=== PATIENT | female | born 1970 | race Caucasian/White ===

== ENCOUNTER → 2023-01-27 15:48 | Outpatient (CLI) | payer OTHER, SELFPAY ==
[2023-01-27 16:12] LABS: Basophils # 0.1 K/mm3 (0-0.2); Basophils % 0.9 % (0.1-2.0); Eosinophils # 0.1 K/mm3 (0.0-0.4); Eosinophils % 2.3 % (0.1-12.0); Hematocrit 42.6 % (37.0-47.0); Lymphocytes # 1.9 K/mm3 (0.7-4.5); Lymphocytes % 29.9 % (10-50); Mean Corpuscular HGB Conc 32.9 g/dL (31.8-35.4); Mean Corpuscular Hemoglobin 31.7 pg (27.0-31.2); Mean Corpuscular Volume 96.6 fl (81-99); Mean Platelet Volume 9.4 fl (7.4-10.4); Monocytes # 0.4 K/mm3 (0.1-1.0); Neutrophils # 3.7 K/mm3 (1.8-7.8); Neutrophils % 59.9 % (37.0-80.0); Platelet Count 351 K/mm3 (142-424); Red Blood Count 4.41 M/mm3 (4.20-5.40); Red Cell Distribution Width 12.4 % (11.5-17.5); White Blood Count 6.2 K/mm3 (4.8-10.8)
[2023-01-27 16:30] LABS: Alanine Aminotransferase 28 U/L (12-78); Albumin Level 4.4 g/dl (3.5-5.0); Albumin/Globulin Ratio 1.9 (1.1-1.8); Alkaline Phosphatase 70 U/L (38-126); Anion Gap 9.4 mEq/L (5-15); Aspartate Amino Transferase 33 U/L (14-36); Bilirubin,Total 0.4 mg/dl (0.2-1.3); Blood Urea Nitrogen 18 mg/dl (7-17); Calcium 8.8 mg/dl (8.4-10.2); Carbon Dioxide 26 mmol/L (22.0-30.0); Chloride 106 mmol/L (98-107); Chol/HDL Ratio 3.6 (1-3.5); Cholesterol 257 mg/dl (140-200); Estimated Glomerular Filt Rate 87 ml/min (>60); GFR (African American) 106 ML/MIN (>60); Globulin 2.3 g/dL (1.3-3.2); Glucose 98 mg/dl (74-100); HDL Cholesterol 72 mg/dl (40-60); Potassium 4.4 mmoL/L (3.5-5.1); Sodium 137 mmol/L (136-145); Total Protein,Serum 6.7 g/dl (6.3-8.2); Triglycerides 46 mg/dl (30-150); VLDL Cholesterol 9 mg/dL (0-40)
[2023-01-27 16:41] LABS: Direct LDL Cholesterol 153.33 mg/dL (100-129)
[2023-01-27 17:02] LABS: Thyroid Stimulating Hormone 2.29 uIU/mL (0.465-4.68)
== END ==
PROVIDERS: PCP Nurse Practitioner Family; Visit Provider Nurse Practitioner Family
DX: G43.909 Migraine, unspecified, not intractable, without status migrainosus (principal); R53.83 Other fatigue
CPT/HCPCS: 80053; 80061; 82306; 84443; 85025

== ENCOUNTER 2023-12-07 19:09 | Outpatient (CLI) | payer OTHER, SELFPAY ==
[2023-12-07 19:32] LABS: Basophils % 0.6 % (0.1-2.0); Eosinophils # 0.1 K/mm3 (0.0-0.4); Eosinophils % 1.2 % (0.1-12.0); Hematocrit 42.5 % (37.0-47.0); Lymphocytes # 2.3 K/mm3 (0.7-4.5); Lymphocytes % 47.9 % (10-50); Mean Corpuscular Hemoglobin 32.1 pg (27.0-31.2); Mean Corpuscular Volume 97.4 fl (81-99); Mean Platelet Volume 8.8 fl (7.4-10.4); Monocytes # 0.3 K/mm3 (0.1-1.0); Monocytes % 6.5 % (1.7-9.3); Neutrophils # 2.1 K/mm3 (1.8-7.8); Neutrophils % 43.7 % (37.0-80.0); Platelet Count 322 K/mm3 (142-424); Red Blood Count 4.36 M/mm3 (4.20-5.40); Red Cell Distribution Width 12.4 % (11.5-17.5); White Blood Count 4.8 K/mm3 (4.8-10.8)
[2023-12-07 19:42] LABS: Alanine Aminotransferase 23 U/L (12-78); Albumin Level 4.6 g/dl (3.5-5.0); Albumin/Globulin Ratio 1.9 (1.1-1.8); Alkaline Phosphatase 67 U/L (38-126); Aspartate Amino Transferase 27 U/L (14-36); Bilirubin,Total 1.3 mg/dl (0.2-1.3); Blood Urea Nitrogen 16 mg/dl (7-17); Calcium 8.9 mg/dl (8.4-10.2); Carbon Dioxide 26 mmol/L (22.0-30.0); Chloride 101 mmol/L (98-107); Cholesterol 250 mg/dl (140-200); Estimated Glomerular Filt Rate 75 ml/min (>60); GFR (African American) 90 ML/MIN (>60); Globulin 2.4 g/dL (1.3-3.2); Glucose 76 mg/dl (74-100); Triglycerides 61 mg/dl (30-150); VLDL Cholesterol 12 mg/dL (0-40)
[2023-12-07 19:53] LABS: Direct LDL Cholesterol 146.71 mg/dL (100-129)
[2023-12-07 19:59] LABS: 25-OH Vitamin D, Total 84.8 ng/mL (30-100)
[2023-12-07 20:12] LABS: Thyroid Stimulating Hormone 5.73 uIU/mL (0.465-4.68)
[2023-12-07 20:43] LABS: Anion Gap 14.3 mEq/L (5-15); Potassium 4.3 mmoL/L (3.5-5.1); Sodium 137 mmol/L (136-145)
[2023-12-07 20:47] LABS: Chol/HDL Ratio 3.5 (1-3.5); HDL Cholesterol 71 mg/dl (40-60)
== END 2023-12-07 23:59 ==
LOC: LAB.DROPOF 19:09
PROVIDERS: Visit Provider Family Medicine
DX: G43.909 Migraine, unspecified, not intractable, without status migrainosus (principal); E03.9 Hypothyroidism, unspecified; E78.5 Hyperlipidemia, unspecified
CPT/HCPCS: 80053; 80061; 82306; 84443; 85025

== ENCOUNTER 2024-11-28 13:35 | Outpatient (CLI) | payer OTHER, SELFPAY ==
[2024-11-28 18:41] LABS: Basophils % 0.4 % (0.1-2.0); Eosinophils # 0.1 K/mm3 (0.0-0.4); Eosinophils % 1.1 % (0.1-12.0); Hemoglobin 13.6 g/dL (12.2-16.2); Lymphocytes # 1.7 K/mm3 (0.7-4.5); Lymphocytes % 38.1 % (10-50); Mean Corpuscular HGB Conc 33.2 g/dL (31.8-35.4); Mean Corpuscular Hemoglobin 31.6 pg (27.0-31.2); Mean Corpuscular Volume 95.3 fl (81-99); Mean Platelet Volume 10.6 fl (7.4-10.4); Monocytes # 0.3 K/mm3 (0.1-1.0); Neutrophils # 2.4 K/mm3 (1.8-7.8); Neutrophils % 53.2 % (37.0-80.0); Platelet Count 310 K/mm3 (142-424); White Blood Count 4.5 K/mm3 (4.8-10.8)
[2024-11-28 19:16] LABS: Alanine Aminotransferase 27 U/L (12-78); Albumin Level 4.8 g/dl (3.5-5.0); Albumin/Globulin Ratio 2.3 (1.1-1.8); Alkaline Phosphatase 63 U/L (38-126); Anion Gap 12.2 mEq/L (5-15); Aspartate Amino Transferase 30 U/L (14-36); Bilirubin,Total 1.4 mg/dl (0.2-1.3); Blood Urea Nitrogen 14 mg/dl (7-17); Calcium 9.7 mg/dl (8.4-10.2); Carbon Dioxide 26 mmol/L (22.0-30.0); Chloride 101 mmol/L (98-107); Chol/HDL Ratio 3.3 (1-3.5); Cholesterol 273 mg/dl (140-200); Estimated Glomerular Filt Rate 87 ml/min (>60); GFR (African American) 105 ML/MIN (>60); Globulin 2.1 g/dL (1.3-3.2); Glucose 81 mg/dl (74-100); HDL Cholesterol 82 mg/dl (40-60); Potassium 4.2 mmoL/L (3.5-5.1); Sodium 135 mmol/L (136-145); Total Protein,Serum 6.9 g/dl (6.3-8.2); Triglycerides 45 mg/dl (30-150); VLDL Cholesterol 9 mg/dL (0-40)
[2024-11-28 19:28] LABS: Direct LDL Cholesterol 178.08 mg/dL (100-129)
[2024-11-28 19:36] LABS: 25-OH Vitamin D, Total 83.7 ng/mL (30-100)
[2024-11-28 19:43] LABS: T4 (Thyroxine) 8.4 ug/dl (5.53-11.0); Triiodothryronine (T3) Uptake 36 % (23.5-40.5)
[2024-11-28 19:57] LABS: Thyroid Stimulating Hormone 3.23 uIU/mL (0.465-4.68)
== END 2024-11-28 23:59 | disposition home or self-care (01) ==
LOC: LAB.DROPOF 11-30 08:38
PROVIDERS: PCP Family Medicine; Visit Provider Family Medicine
DX: E03.9 Hypothyroidism, unspecified (principal); E78.5 Hyperlipidemia, unspecified
CPT/HCPCS: 80053; 80061; 82306; 84436; 84443; 84479; 85025

== ENCOUNTER 2025-05-15 09:47 | Outpatient (CLI) | payer OTHER, SELFPAY ==
[2025-05-15 19:41] LABS: Chol/HDL Ratio 3.1 (1-3.5); Cholesterol 277 mg/dl (140-200); HDL Cholesterol 90 mg/dl (40-60); Triglycerides 63 mg/dl (30-150); VLDL Cholesterol 13 mg/dL (0-40)
[2025-05-15 19:52] LABS: Direct LDL Cholesterol 149.82 mg/dL (100-129)
[2025-05-15 20:03] LABS: Free Thyroxine Index 2.4 ug/dL (5.93-13.13); T4 (Thyroxine) 6.4 ug/dl (5.53-11.0); Triiodothryronine (T3) Uptake 37 % (23.5-40.5)
--- OUTSIDE RECORDS SUMMARY | 2025-05-19 10:17 | XMS_ITS | Clinical Summary ---
Author Organization [facility] Address [address] [place] [address] Phone Care Team Providers Care Round Cutter Operator Name Role Phone Jason Gilbert MD Primary Care Provider Brigida Coles STRAIGHT KNIFE MACHINE CUTTER Unavailable [phone] Allergies Active Allergy Reactions Criticality Noted Date Comments Venom-Wasp Anaphylaxis High 07/04/2022 Passed out Medications riboflavin, vitamin B2, 400 mg Oral TabletIndication s:Migraine with aura and without status migrainosus, not intractable Take 800 mg by mouth daily. For migraine prophylaxis 60 Tab 12 8 Active EPINEPHrine (EPIPEN 2-BENJAMIN) 0.3 mg/0.3 mL Inj Auto-InjectorInd ications:Bee sting allergy Inject 0.3 mL into the muscle as needed for Anaphylaxis. Report to the ER if having reaction bad to warrant use. 2 Each 12 2 Active SUMAtriptan (IMITREX) 100 mg Oral TabletIndication s:Migraine with aura and without status migrainosus, not intractable TAKE ONE TABLET BY MOUTH ONCE NEEDED FOR MIGRAINE FOR UP TO ONE DOSE 9 Tablet 3 2 Active Active Problems Problem Noted Date Diagnosed Date Migraine headache 12/12/2012 Assessment & Plan (07/04/2022 3:35 PM EDT): Doing well on Imitrex Generally needing to treat about 2X monthly Will give samples of Ubrelvy If working well, will plan on changing to this. Assessment & Plan (08/11/2021 2:48 PM EDT): Doing well on Imitrex Needing ~ 2 doses monthly Assessment & Plan (08/06/2020 2:04 PM EDT): Doing well on Imitrex Has about 2 a month Well controlled on Imitrex. Assessment & Plan (12/19/2018 2:27 PM EST): Doing well on current treatment Immunizations Immunization Administration Dates Next Due Hepatitis A, Unspecified Formulation 07/28/2018 Td (Adult), Absorbed 12/10/1999 Tdap 12/12/2012 Surgical History Surgery Date Site/Laterality Comments ENDOMETRIAL ABLATION ~2003 BREAST BIOPSY 02/01/2019 Left Medical History Medical History Date Comments Migraine headache Family History Medical History Relation Name Comments Cancer Father liver Cancer Mother Colon Cancer Neg Hx Diabetes Neg Hx Heart Attack Neg Hx Heart Disease Neg Hx Migraines Neg Hx Relation Name Status Comments Father Alive Mother Alive Social History Tobacco Use Types Packs/Day Years Used Date Smoking Tobacco: Never Smokeless Tobacco: Never Alcohol Use Standard Drinks/Week Comments Yes 2 (1 standard drink = 0.6 oz pur e alcohol) PHQ-2 Answer Date Recorded PHQ-2 Total Score 0 08/11/2021 Sexually Active Control Partners Comments Yes Other-see comments Male w ith Vasectomy Comments No Sex and Gender Information Value Date Recorded Sex Assigned at Not on file Legal Sex Female 5:09 AM EDT Gender Identity Not on file Sexual Orientation Not on file Obstetrics History Last Filed Vital Signs Vital Sign Reading Time Taken Comments Blood Pressure 122/70 07/04/2022 2:59 PM EDT Pulse 87 07/04/2022 2:59 PM EDT Temperature 37 C (98.6 F) 07/04/2022 2:59 PM EDT Respiratory Rate 16 02/01/2019 11:32 AM EST Oxygen Saturation 99% 07/04/2022 2:59 PM EDT Inhaled Oxygen Concentration - - Weight 45.8 kg (101 lb) 07/04/2022 2:59 PM EDT Height 157.5 cm (5' 2 ) 07/04/2022 2:59 PM EDT Body Mass Index 18.47 07/04/2022 2:59 PM EDT Plan of Treatment Health Maintenance Due Date Last Done Comments Hepatitis B Vaccine (1 of 3 - 19+ 3-dose series) 1988 Cervical Cancer Screening 1990 Pap Smear 1990 HPV/Pap Cotest 1999 Colonoscopy 2014 Sigmoidoscopy 2014 Virtual Colonography 2014 Pneumococcal Vaccine 50+ (1 of 1 - PCV) 2019 Zoster (1 of 2) 2019 FIT 01/23/2020 01/23/2019 Breast Cancer Screening 01/17/2021 01/17/20 19, 09/07/2007, 06/07/2005 DTaP/TDaP/Td (2 - Td or Tdap) 12/12/2022 12/12/2012, 12/10/1999 Annual Wellness Exam 07/04/2023 07/04/2022, 08/11/2021, 08/06/2020, Additional history exists Cologuard 08/25/2023 08/25/2020, 08/25/2020 Colon Cancer Screening 08/25/2023 COVID-19 Vaccine ( season) 2024 Influenza Vaccine (Season Ended) 2025 11/13/2015 (Declined) Meningococcal B Vaccine Aged Out No l onger eligible based on patient's age to complete this topic Goals Goal Patient Goal Type Associated Problems Recent Progress Patient-Stated? Author Maintain a healthy diet, exercise regularly and maintain an ideal body weight General No Gale Chiu, JASON Procedures Procedure Name Priority Date/Time Associated Diagnosis Comments COLOGUARD Routine 08/25/2020 3:30 AM EDT Screening for colon cancer FECAL HEME (FIT) CANCER SCREEN Routine 01/23/2019 1:34 PM EST Screening for colon cancer MM MAMMO DIGITAL PETRA SCREEN BILAT Routine 01/17/2019 1:36 PM EST Encounter for screening mammogram for breast cancer from Last 3 Months or Most Recently Relevant to Health Maintenance Results * COLOGUARD (08/25/2020 3:30 AM EDT) COLOGUARD CLINICAL REPORT Negative Not Applicable [facility] Comment: A negative result indicates a low likelihood that a colorectal cancer (CRC) or an advanced adenoma (adenomatous polyps with more advanced pre-malignant features) is present. The chance that a person with a negative Cologuard test has a colorectal cancer is less than 1 in 1500 (negative predictive value >99.9%) or has an advanced adenoma is less than 5.3% (negative predictive value 94.7%). These data are based on a prospective cross-sectional screening study of 10,000 individuals at average risk for colorectal cancer who were screened with both Cologuard and colonoscopy. (Thomas Giordano. et al, N Engl J Med 2014;370(14):1859-3221) The normal value (reference range) for this assay is negative. COLOGUARD RE-SCREENING RECOMMENDATION: Periodic routine colorectal cancer screening is an important part of preventive healthcare for asymptomatic persons at average risk for colorectal cancer. Following a negative Cologuard result, the [place] [employer] Society and U.S. Multi-Society Task Force screening guidelines recommend a Cologuard re-screening interval of 3 years. References: [place] [employer] Society (ACS). Colorectal cancer prevention and early detection. [place], [place]: [place] [employer]; [updated 2015Mar 20]. https://www.cancer.org/cancer/nbhsz-oufhwd-fslkxe/hgxsaszqf-amymkmeqr-rxzogyz/ac s-rec ommendations.html. Accessed July 27, 2018; Mc DK, Amaya CR, Mike LaraK, Colorectal Cancer Screening: Recommendations for Physicians and Patients from the U.S. Multi-Society Task Force on Colorectal Cancer Screening, Am J Gastroenterology 2017; 112:4056-0574. TEST TYPE: Composite algorithmic analysis of stool DNA-biomarkers with hemoglobin immunoassay. Quantitative values of individual biomarkers are not reportable and are not associated with individual biomarker result reference ranges. PRECAUTIONS AND LIMITATIONS: Cologuard is intended for colorectal cancer screening of adults of either sex, 45 years or older, who are at average-risk for colorectal cancer (CRC). Cologuard has been approved for use by the U.S. FDA. Cologuard may produce a false negative or false positive result. A negative Cologuard test result does not guarantee the absence of CRC or advanced adenoma (pre-cancer). Patients with a negative Cologuard test result should be advised to continue participating in a colorectal cancer screening program. The screening interval for Cologuard is currently recommended at an interval of every 3 years by the [place] [employer] and U.S. Multi-Society Task Force. A false positive result occurs when Cologuard produces a positive result, even though a colonoscopy may not find colorectal cancer or precancerous polyps. The performance of Cologuard has been established in a cross sectional study (i.e., single point in time) of average-risk adults aged 50-84. Cologuard performance in patients ages 45 to 49 years was estimated by sub-group analysis of near-age groups. Cologuard performance data in a 10,000 patient pivotal study using colonoscopy as the reference method can be accessed at the following location: www.[employer]/results. Additional description of the Cologuard test process, warnings and precautions can be found at www.cologuardtest.com. Rx only. Stool specimen (specimen) 08/25/2020 3:30 AM EDT 08/26/2020 4:25 PM EDT us Jason Gilbert MD [employer]ENCE - ORDERA BLES Final Result Performing Organization Address City/[facility]/ZIP Co de Phone Number [employer], [place] [address], [facility] [employer] [address] [place] [address] * FECAL HEME SCREEN (01/23/2019 1:34 PM EST) Fecal Heme Scrn Negative Negative 01/24/2019 7:56 AM EST [facility] Stool COLON STRUCTURE / Unknown 01/23/2019 1:34 PM EST 01/23/2019 1:34 PM EST us Jason Gilbert MD IMMUNOLOGY ORDERABLES Final Result Performing Organization Address City/[facility]/ZIP Co de Phone Number [facility] [address] [place] [address] * MM MAMMO DIGITAL PETRA SCREEN BILAT (01/17/2019 1:36 PM EST) Anatomical Region Laterality Modality Breast Bilateral Mammography 01/18/2019 3:21 PM EST Impressions 01/18/2019 3:21 PM EST Incomplete-need additional imaging evaluation ([id number]) ~ RECOMMENDATION: Ultrasound of the left breast. ~ DISCLAIMER * Any patient with a palpable abnormality, unexplained by breast imaging, should be managed on clinical basis by the attending physician. * Breast imaging has a false negative rate of 15%. * The patient was notified by mail of the results of this examination. *The patient's information was entered into a reminder system with a target due date for the next mammogram. Narrative 01/18/2019 3:21 PM EST Procedure:MM MAMMO DIGITAL PETRA SCREEN BILAT ~ Reason for exam: screening, asymptomatic. Z12.31-Encounter for screening mammogram for malignant neoplasm of [id number] ~ MM MAMMO DIGITAL PETRA SCREEN BILAT Bilateral CC and MLO view(s) were taken. There are scattered fibroglandular densities. Prior study comparison: Compared with prior studies, the most recent being 09/07/07, 06/07/05. There is an oval subcentimeter low-density mass in the superior left breast at 12:00. This is only well seen on the CC view. There is no mammographic evidence of malignancy in the right breast. ~ Procedure Note Almita Scott MD - 01/18/2019 Procedure:MM MAMMO DIGITAL PETRA SCREEN BILAT ~ Reason for exam: screening, asymptomatic. Z12.31-Encounter for screening mammogram for malignant neoplasm of [id number] ~ MM MAMMO DIGITAL PETRA SCREEN BILAT Bilateral CC and MLO view(s) were taken. There are scattered fibroglandular densities. Prior study comparison: Compared with prior studies, the most recentbeing 09/07/07, 06/07/05. There is an oval subcentimeter low-density mass in the superior leftbreast at 12:00. This is only well seen on the CC view. There is nomammographic evidence of malignancy in the right breast. ~ IMPRESSION: Incomplete-need additional imaging evaluation ([id number]) ~ RECOMMENDATION: Ultrasound of the left breast. ~ DISCLAIMER * Any patient with a palpable abnormality, unexplained by breast imaging, should be managed on clinical basis by the attending physician. * Breast imaging has a false negative rate of 15%. * The patient was notified by mail of the results of this examination. *The patient's information was entered into a reminder system with atarget due date for the next mammogram. Jason Gilbert MD IM MAMMOGRAPHY ORDERA BLES Final Result from Last 3 Months or Most Recently Relevant to Health Maintenance Insurance [employer] [facility] PPO [facility] [employer] [place] [facility] Care Teams Round Cutter Operator Relationship Specialty Start Date End Date Jason Gilbert MD [address] [place] [address] PCP - General Family Medicine 10/25/11 Brigida Coles APRN [address] [place] [address] Nurse Practitioner 04/14/16
== END 2025-05-15 23:59 | disposition home or self-care (01) ==
LOC: LAB.DROPOF 05-19 09:49
PROVIDERS: PCP Family Medicine; Visit Provider Family Medicine
DX: E78.5 Hyperlipidemia, unspecified (principal); E03.9 Hypothyroidism, unspecified
CPT/HCPCS: 80061; 84436; 84443; 84479